=== PATIENT | male | born 1960 | race Caucasian/White ===

== ENCOUNTER 2016-10-10 14:59 | Emergency (ER) | payer OTHER, MEDICAID ==
[~2016-10-10] VITALS: Ht 167.6 cm; Wt 65.0 kg
[~2016-10-10 14:59] MED LIST: ATOR10TA65 PO; FLOMAX PO; LISI10TA2 PO; MIRT-30 PO; PHEN100C PO; VENL150C PO; ZOLP10TA PO
[2016-10-10 15:02] VITALS: Ht 167.6 cm; Wt 65.0 kg
--- NOTE | 2016-10-10 15:41 | ERD ---
ER Documentation Chief Complaint Date/Time DATE: 10/10/16 TIME: 15:36 Chief Complaint lt hand lac s/p trip and fall on glass table HPI Is a 55-year-old male who presents to the emergency department today for a left hand laceration that he sustained earlier today after he tripped and fell over his cat and landed on a glass table. Denies any previous trauma. States he is up-to-date on his tetanus. 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 ROS All systems reviewed and are negative except as per history of present illness. Medications Home Meds Active Scripts Cephalexin* (Keflex*) 500 Mg Capsule, 500 MG PO QID for 7 Days, CAP Prov:MARIBEL MAYERS PA-C 10/10/16 Reported Medications Zolpidem Tartrate* (Ambien*) 10 Mg Tablet, PO HS 02/20/13 [Flomax] No Conflict Check, PO DAILY 02/20/13 Mirtazapine* (Remeron*) 15 Mg Tab, PO DAILY 02/20/13 Venlafaxine Hcl* (Effexor XR*) 150 Mg Cap.sr.24h, PO TID 02/20/13 Atorvastatin Calcium (Atorvastatin Calcium) 10 Mg Tab, PO DAILY 02/20/13 Phenytoin* Sodium Extended (Dilantin*) 100 Mg Capsule, PO DAILY 02/20/13 Lisinopril* (Lisinopril*) 10 Mg Tablet, PO DAILY 02/20/13 Allergies Allergies: Coded Allergies: No Known Drug Allergies (Verified Allergy, 02/20/13) PMhx/Soc History of Surgery: Yes (BACK X3) Hx Neurological Disorder: Yes (SEIZURE) Hx Cardiac Disorders: Yes (HTN) Hx Psychiatric Problems: Yes (DEPRESSION) Physical Exam Vitals Vital Signs Date Time Temp Pulse Resp B/P Pulse Ox O2 Delivery O2 Flow Rate FiO2 10/10/16 15:02 97.9 116 20 162/92 98 Physical Exam Const: Nontoxic-appearing Head: Atraumatic Eyes: Normal Conjunctiva ENT: Normal External Ears, Nose and Mouth. Neck: Full range of motion..~ No meningismus. Resp: Clear to auscultation bilaterally Cardio: Regular rate and rhythm, no murmurs Abd: Soft, non tender, non distended. Normal bowel sounds Skin: Left dorsal aspect of thumb with 1.5 cm superficial laceration with bleeding well controlled. No evidence of foreign body Back: No midline or flank tenderness Ext: Left dorsal aspect of time of 1.5 cm superficial laceration with bleeding well controlled. Full active range of motion at thumb with tenderness palpation over thenar eminence. Pulses 2+. Distal neurovascularly intact. Neur: Awake and alert Psych: Normal Mood and Affect Results 24 hrs Current Medications Medications (Trade) Dose Ordered Sig/Kvng Route PRN Reason Start Time Stop Time Status Last Admin Dose Admin Lidocaine (Xylocaine 2% (Mdv) 20 ml) 20 ml ONCE ONCE INJ 10/10/16 16:00 10/10/16 16:01 DC DIAGNOSTIC IMAGING REPORT Patient: JESSICA GALLEGOS : 1960 Age: 55 Sex: M MR #: [id number] DOS: 10/10/16 0000 Ordering MD: MARIBEL MAYERS PA-C Location: [facility] Room/Bed: PROCEDURE: XR Left Hand. CLINICAL INDICATION: Trauma. Left thumb pain. Left hand pain. TECHNIQUE: Three views. Frontal lateral and oblique images of the left hand were obtained. COMPARISON: No prior studies are available for comparison. FINDINGS: There is no fracture or dislocation. The soft tissues are normal. Articular surfaces are intact. There is no lytic or blastic lesion. There is no radiopaque foreign body. IMPRESSION: 1. Unremarkable images of the left hand. 2. The left thumb is normal. RPTAT: QQ .You Salgado MD, MD Date Time Electronically viewed and signed by .You Salgado MD, MD on 10/10/2016 16:12 .R/ CC: MARIBEL MAYERS PA-C Procedures/MDM This is a right-handed 55-year-old male who presents the emergency department today complaining of a left hand laceration after tripping and falling and hitting his hand on glass earlier today. Patient was concerned about the bleeding and indicating that he felt that he needed a stitch. Patient's bleeding is well controlled and the wound is superficial however when patient moves his thumb it does increase the bleeding.. I explained the risks and benefits of the procedure and the patient agreed to proceed. I did obtain images prior to closing the wound. Per the radiology report images of the left hand are unremarkable. The left thumb is normal. There is no fracture dislocation. Soft tissues are normal. There is no radiopaque foreign body. Patient symptoms at this time is consistent with thumb contusion versus sprain versus strain and laceration Patient declined any pain medication here in the emergency department. He is afebrile and otherwise well-appearing. Laceration Repair by me: Anesthesia: 1% lidocaine locally 3 cc Location: Left thumb Tendon/Joint/Nerves: No injury Foreign body: None detected after copious irrigation and exploration Technique: 3 simple Interrupted Sutures using 4-0 Prolene Complexity: No subcutaneous sutures/mucosal repair/ edge excision Post Closure Length: 1.5 cm Patient's bleeding was easily controlled in the department and there is no indication of anemia. No evidence of compartment syndrome, neurologic injury, vascular injury, open joint, tendon laceration, or foreign body. Patient is appropriate for outpatient follow up. 48 hour wound check. Scar minimization instructions given. Patient will be given a prescription for Keflex at home. Patient indicated he was follow-up in 48 hours for a wound check and suture removal in 7-10 days with his primary care doctor at the [facility] . Patient declined pain medication for home. Patient's tetanus was up-to-date. At this time the patient is stable for discharge and outpatient management. Patient should follow up with their PCP in the next 1-2 days. They may return to the emergency department sooner for any persistent or worsening of symptoms. Patient understood and agreed with the plan. Departure Diagnosis: Primary Impression: Laceration Additional Impression: Thumb pain Laterality: left Qualified Code: M79.645 - Thumb pain, left Condition: Fair MARIBEL MAYERS PA-C Oct 10, 2016 15:40
[2016-10-10] MEDS ORDERED: LIDOCAINE 2% (MDV) 20 ML INJ INJ ONE (16:00)
--- NOTE | 2016-10-10 16:12 | RADRPT ---
PROCEDURE: XR Left Hand. CLINICAL INDICATION: Trauma. Left thumb pain. Left hand pain. TECHNIQUE: Three views. Frontal lateral and oblique images of the left hand were obtained. COMPARISON: No prior studies are available for comparison. FINDINGS: There is no fracture or dislocation. The soft tissues are normal. Articular surfaces are intact. There is no lytic or blastic lesion. There is no radiopaque foreign body. IMPRESSION: 1. Unremarkable images of the left hand. 2. The left thumb is normal. RPTAT: QQ .You Salgado MD, MD Date Time Electronically viewed and signed by .You Salgado MD, on 10/10/2016 16:12 .R/
[2016-10-10] MEDS ORDERED: CEPH-443 PO (16:56)
== END 2016-10-10 17:12 | disposition home or self-care (01) ==
LOC: FTE 14:59
DX: S61.012A Laceration without foreign body of left thumb without damage to nail, initial encounter (principal); I10 Essential (primary) hypertension; W01.198A Fall on same level from slipping, tripping and stumbling with subsequent striking against other object, initial encounter; Y92.9 Unspecified place or not applicable

== ENCOUNTER 2017-02-28 14:12 | Inpatient (IN) | payer OTHER ==
[~2017-02-28] VITALS: Ht 180.3 cm; Wt 62.8 kg
[~2017-02-28 14:12] MED LIST changes: +CEPH-443 PO
[2017-02-28 17:08] VITALS: Ht 180.3 cm; Wt 62.8 kg
[2017-02-28 17:22] VITALS: BP 138/84; PULSE 94; RESP 20
[2017-02-28] MEDS ORDERED: DULO60CA59 PO (17:34)
[2017-02-28] MEDS ORDERED: LAMO100T PO (17:34)
[2017-02-28] MEDS ORDERED: ATOR20TA38 PO (17:34)
[2017-02-28] MEDS ORDERED: CLI60SOL TOP (17:34)
[2017-02-28] MEDS ORDERED: TIOT18CA INHALATION (17:34)
[2017-02-28] MEDS ORDERED: CHOL100062 PO (17:34)
[2017-02-28] MEDS ORDERED: ASPI81TA3 PO (17:34)
[2017-02-28] MEDS ORDERED: AMLO-147 PO (17:34)
[2017-02-28] MEDS ORDERED: ALBU90AE INHALATION (17:34)
[2017-02-28] MEDS ORDERED: TRAZ50TA18 PO (17:34)
[2017-02-28] MEDS ORDERED: ALBUTEROL/IPRATROPIUM (NEB) 3 ML AMP HHN PRN (18:00)
[2017-02-28] MEDS: morphine 2 MG INJ IV PRN (18:32)
[2017-02-28] MEDS: ALBUTEROL/IPRATROPIUM (NEB) 3 ML AMP HHN SCH (19:26)
[2017-02-28 19:53] VITALS: BP 112/76; RESP 20
[2017-02-28 20:14] VITALS: PULSE 80
[2017-02-28] MEDS ORDERED: ATORVASTATIN 20 MG TAB PO SCH (21:00)
[2017-02-28] MEDS ORDERED: traZODone 50 MG TAB PO SCH (21:00)
[2017-02-28 23:34] VITALS: BP 96/58; RESP 20
[2017-03-01] VITALS (9 sets, daily range): BP systolic 110–121; BP diastolic 56–77; PULSE 67–79; RESP 17–20
[2017-03-01] MEDS: ALBUTEROL/IPRATROPIUM (NEB) 3 ML AMP HHN SCH ×3 (01:20→13:44)
[2017-03-01] MEDS: morphine 2 MG INJ IV PRN ×2 (01:25→10:44)
[2017-03-01] MEDS ORDERED: LORAZEPAM 1 MG TAB PO PRN (06:30)
[2017-03-01] MEDS ORDERED: TIOTROPIUM 18 MCG CAPSULE INHA DEV INH SCH (09:00)
[2017-03-01] MEDS ORDERED: LAMOTRIGINE 100 MG TAB PO SCH (09:00)
[2017-03-01] MEDS ORDERED: AMLODIPINE 10 MG TAB PO SCH (09:00)
[2017-03-01] MEDS ORDERED: DULOXETINE 30 MG CAP DR PO SCH (09:00)
[2017-03-01] MEDS ORDERED: CHOLECALCIFEROL 1,000 UNIT TAB PO SCH (09:00)
[2017-03-01] MEDS ORDERED: ASPIRIN 81 MG TAB PO SCH (09:00)
[2017-03-01] MEDS ORDERED: ATORVASTATIN 20 MG TAB PO SCH ×2 (09:00→21:00)
[2017-03-01 09:14] LABS: BASOPHIL # 0.1 10^3/ul (0.0-0.1); BASOPHILS % 0.7 % (0.0-2.0); EOSINOPHILS # 0.3 10^3/ul (0.0-0.5); EOSINOPHILS % 2.5 % (0.0-7.0); HEMATOCRIT 42.6 % (42.0-52.0); HEMOGLOBIN 14.7 g/dl (14.0-18.0); LYMPHOCYTES # 0.9 10^3/ul (0.8-2.9); LYMPHOCYTES % 7.7 % (15.0-51.0); MEAN CORPUSCULAR HEMOGLOBIN 29.5 pg (29.0-33.0); MEAN CORPUSCULAR HGB CONC 34.5 g/dl (32.0-37.0); MEAN CORPUSCULAR VOLUME 85.5 fl (82.0-101.0); MEAN PLATELET VOLUME 11.5 fl (7.4-10.4); MONOCYTE # 1.3 10^3/ul (0.3-0.9); MONOCYTES % 10.9 % (0.0-11.0); NEUTROPHIL # 9.4 10^3/ul (1.6-7.5); NEUTROPHILS % 77.4 % (39.0-77.0); PLATELET COUNT 160 10^3/UL (140-415); RED BLOOD COUNT 4.98 10^6/ul (4.70-6.10); RED CELL DISTRIBUTION WIDTH 15.7 % (11.5-14.5); WHITE BLOOD COUNT 12.2 10^3/ul (4.8-10.8)
[2017-03-01 09:37] LABS: ALBUMIN 3.8 g/dl (3.3-4.9); ALBUMIN/GLOBULIN RATIO 1.15; BILIRUBIN,INDIRECT 0.8 mg/dl (0-1.1); BILIRUBIN,TOTAL 0.8 mg/dl (0.2-1.3); CALCIUM 8.9 mg/dl (8.4-10.2); CHOL/HDL RATIO 2.6 RATIO; CREATININE 0.68 mg/dl (0.61-1.24); TOTAL PROTEIN 7.1 g/dl (6.1-8.1)
[2017-03-01 10:04] LABS: THYROID STIMULATING HORMONE 1.86 MIU/L (0.465-4.680)
[2017-03-01] MEDS ORDERED: ASPI81TA3 PO (11:16)
[2017-03-01] MEDS ORDERED: ATOR20TA38 PO (11:16)
[2017-03-01] MEDS ORDERED: POTASSIUM CHLORIDE (SR) 20 MEQ TAB PO STA ×2 (11:31→15:18)
[2017-03-01] MEDS ORDERED: MAGNESIUM SULFATE 6 GM in DEXTROSE 5% 100 ML IVPB ONE (13:30)
--- NOTE | 2017-03-01 15:21 | PDOCDIS ---
Discharge Instructions DIAGNOSIS Discharge Diagnosis 1. Chest pain 2. Dyslipidemia 3. Depression 4. Suspect history of COPD CONDITION Patient Condition: Stable HOME CARE INSTRUCTIONS: Special Diet: Cardiac diet FOLLOW UP/APPOINTMENTS Follow-up Plan 1. 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 Call 911 if he has worsening chest pain or shortness of breath BRAULIO ASTUDILLO Mar 01, 2017 15:21
--- NOTE | 2017-03-01 17:40 | RADRPT ---
Echocardiogram Report Patient Name: JESSICA GALLEGOS Gender: Male Date: 1960 Study Date: 01-Mar-2017 Projection Camera Operator: Theo Hamilton [facility] Location: 5550 Ref. Physician: DENZEL LOWE Quality: Good Procedures: Transthoracic echocardiogram with complete 2D, M-Mode, and doppler examination. Indications: Chest Pain. 2D/M Mode Doppler Measurement Value Normal Ranges Measurement Value Normal Ranges LVIDd 2D 4.4 3.5 - 5.6 cm AV Peak Nitesh 1.5 m/sec LVIDs 2D 2.4 2.1 - 4.1 cm AV Peak PG 9.2 mmHg LVPWd 2D 0.8 0.6 - 1.1 cm LVOT Peak Nitesh 0.9 m/sec IVSd 2D 1.1 0.6 - 1.1 cm LVOT Peak PG 3.5 mmHg AoR Diam 2D 3.1 2.0 - 3.7 cm MV E Peak Nitesh 0.6 m/sec EDV 2D 89.3 cm3 MV A Peak Nitesh 1.0 m/sec ESV 2D 14.4 cm3 MV E/A 0.6 LA Dimen 2D 3.6 2.3 - 4.0 cm MV Decel Time 250 msec MV Decel Sharkey 3 MV E/A 0.6 TR Peak Nitesh 1.8 m/sec TR Peak PG 13.7 mmHg RVSP 17.0 mmHg Findings Left Ventricle: Normal left ventricular systolic function. Normal left ventricular cavity size. Normal left ventricular wall thickness. Ejection fraction is visually estimated at 60 %. Tissue Doppler/Mitral Doppler indices are consistent with impaired relaxation (Stage I diastolic dysfunction). Right Ventricle: Normal right ventricular size. Normal right ventricular systolic function. Left Atrium: The left atrium is normal in size. Right Atrium: The right atrium is normal in size. Mitral Valve: Normal appearance and function of the mitral valve with trace physiologic regurgitation. Aortic Valve: Normal appearance of the aortic valve. No significant aortic stenosis or insufficiency. Tricuspid Valve: Normal appearance of the tricuspid valve. Estimated peak PA systolic pressure 17 mmHg. There is trace tricuspid regurgitation. Pulmonic Valve: Normal pulmonic valve appearance. Pericardium: Normal pericardium with no significant pericardial effusion. Aorta: Normal aortic root. IVC: Normal size and normal respiratory collapse consistent with normal right atrial pressure. Conclusions 1.Normal left ventricular systolic function. Normal left ventricular cavity size. Normal left ventricular wall thickness. Ejection fraction is visually estimated at 60 %. Tissue Doppler/Mitral Doppler indices are consistent with impaired relaxation (Stage I diastolic dysfunction). 2.Normal appearance and function of the mitral valve with trace physiologic regurgitation. 3.Normal appearance of the tricuspid valve. Estimated peak PA systolic pressure 17 mmHg. There is trace tricuspid regurgitation. Electronically Signed By: Conor Santillan 01-Mar-2017 17:39:36 -0800 Patient Name: JESSICA GALLEGOS Study Date: 01-Mar-2017 [id number]
[2017-03-01] MEDS ORDERED: traZODone 50 MG TAB PO SCH (21:00)
[2017-03-01] MEDS ORDERED: INFLUENZA VIRUS VACCINE 0.5 ML SYG IM* ONE (21:00)
--- NOTE | 2017-03-01 23:52 | HP ---
Date/Time of Note Date/Time of Note DATE: 03/01/17 TIME: 23:52 Assessment/Plan VTE Prophylaxis VTE Prophylaxis Intervention: heparin Lines/Catheters IV Catheter Type (from [facility]): Saline Lock Urinary Cath still in place: No Assessment/Plan Assessment/Plan ASSESSMENT This is a 56-year-old male with history of COPD, hypertension, seizure disorder , PTSD, herniated disc, depression, old rib fracture presents with shortness of breath, likely secondary to COPD and chest pain, most likely noncardiac PLAN Continue telemetry monitoring Will rule out ACS, send additional troponins Obtain a 2D echo Continue his home medications including treatment for the COPD. He will be provided antianxiety medications as needed. HPI/ROS Admit Date/Time Admit Date/Time Feb 28, 2017 at 16:44 Hx of Present Illness This is a 56-year-old male with a history of COPD, hypertension, seizure disorder, PTSD, herniated disc, depression, rib fracture and tendinitis who initially presented to an outside hospital complaining of chest pain and shortness of breath. He was transferred to [facility] because of insurance reason. He said he started having shortness of breath which he attributed to his COPD for which he took his a Spiriva with minimal improvement. He then started having sharp left-sided chest pain every 5 minutes , lasting for few seconds. Chest pain is nonradiating with no association with exertion. On further questioning, he reported frequent loose bowel movements for 3 days up until yesterday when it has resolved. Denied fever or chills. Patient has a history of PTSD and depression but denied any acute anxiety or panic attack. He has scratch pak on his right forearm which she attributed to cat scratch. PMH/Family/Social Social History Smoking Status: Light tobacco smoker Exam/Review of Systems Vital Signs Vitals Vital Signs Date Time Temp Pulse Resp B/P Pulse Ox O2 Delivery O2 Flow Rate FiO2 03/01/17 16:25 97.9 79 17 116/77 97 03/01/17 13:44 21 02/28/17 17:22 Room Air Intake and Output 02/28/17 02/28/17 03/01/17 15:00 23:00 07:00 Intake Total 600 ml Balance 600 ml Exam Constitutional: alert, oriented Head: atraumatic, normocephalic Eyes: EOMI, PERRL Respiratory: clear to auscultation, normal air movement Cardiovascular: nl pulses, regular rate and rhythm Gastrointestinal: soft Extremities: normal pulses Skin: other (Scratch pak on the right forearm) Labs Result Diagram: 03/01/1781603/01/17816 DENZEL LOWE MD Mar 01, 2017 23:52
== END 2017-03-01 19:20 | disposition home or self-care (01) | DRG 192 ==
LOC: MS4 16:44
PROVIDERS: ADMIT Internal Medicine; ATTEND Internal Medicine
DX: J44.1 Chronic obstructive pulmonary disease with (acute) exacerbation (principal); I10 Essential (primary) hypertension; R07.9 Chest pain, unspecified; G40.909 Epilepsy, unspecified, not intractable, without status epilepticus
CPT/HCPCS: 80053; 80061; 83036; 83735; 84443; 84484; 85025; 90686; 93306; 94640; 94664; J2270; J3475